=== PATIENT | male | born 1995 | race Caucasian/White ===

== ENCOUNTER 2019-07-03 21:49 | Emergency (ER) | payer MEDICAID ==
[~2019-07-03] VITALS: Ht 180.3 cm; Wt 77.1 kg
[2019-07-03 21:55] VITALS: BP_SYST 141
--- NOTE | 2019-07-03 21:55 | NUR ---
Patient to ER H1 for evaluation. Side rails up.
--- NOTE | 2019-07-03 22:25 | NUR ---
Patient is AAOx4. Patient in ED with C/O SOB and cough for 1 hour. Patient states that he used an inhaler all day and noticed that it made his cough worse. Patient reports to have seasonal asthma. O2 sat is 95% on room air. Per patient states that he feels like his throat is closing. Patient denies fever, nausea, or vomiting. Per patient no other complaints/injuries or noted.
--- NOTE | 2019-07-03 23:20 | NUR ---
md CALIN Lux at bedside examining patient.
--- NOTE | 2019-07-03 23:25 | NUR ---
XRAY AT BEDSIDE. Pt tolerated well.
[2019-07-03] MEDS ORDERED: methylPREDNISolone SOD SUCC/PF 62.5 MG/ML VIAL IM ONE (23:30)
[2019-07-03] MEDS ORDERED: IPRATROPIUM/ALBUTEROL SULFATE 3 ML AMPUL.NEB (DUONEB) INH ONE (23:30)
--- NOTE | 2019-07-03 23:32 | NUR ---
RT at bedside administering breathing treatment. Pt tolerated well.
[2019-07-04 00:16] VITALS: BP_SYST 136
--- NOTE | 2019-07-04 00:16 | NUR ---
Patient given written and verbal discharge instructions and verbalizes understanding. ER MD discussed with patient the results and treatment provided. Patient in stable condition. ID arm band removed. Rx of Prednisone and Albuterol given. Patient educated on pain management and to follow up with PMD. Pain Scale 0. Opportunity for questions provided and answered. Medication side effect fact sheet provided.
== END 2019-07-04 00:16 | disposition home or self-care (01) ==
LOC: SED 21:49
DX: J44.1 Chronic obstructive pulmonary disease with (acute) exacerbation (principal)
CPT/HCPCS: 71045; 94640; 96372; 99283; J2930; J7620